=== PATIENT | male | born 1955 | race Caucasian/White ===

== ENCOUNTER 2020-09-30 10:22 | Inpatient (IN) ==
[2020-09-30 11:18] LABS: Basophils % 0.3 %; Eosinophils # 0.3 K/mcL (0.0-0.6); Eosinophils % 3.2 %; Hematocrit 48.4 % (37.5-50.1); Hemoglobin 14.9 g/dL (12.9-16.9); Immature Granulocytes % 0.1 % (0-4); Lymphocytes # 1.9 K/mcL (0.6-4.6); Lymphocytes % 23.9 %; Mean Corpuscular HGB Conc 30.8 g/dL (31.6-35.5); Mean Corpuscular Hemoglobin 28.5 pg (28.0-33.3); Mean Corpuscular Volume 92.7 fL (83.0-100.0); Monocytes # 0.6 K/mcL (0.0-1.3); Monocytes % 6.9 %; Neutrophils # 5.2 K/mcL (1.6-8.9); Platelet Count 254 K/mcL (140-400); Red Blood Count 5.22 M/mcL (4.19-5.50); Red Cell Distribution Width 13.6 % (11.5-14.5); Segmented Neutrophils % 65.6 %; White Blood Count 7.9 K/mcL (4.3-11.1)
[2020-09-30] MEDS ORDERED: Furosemide 40 MG/4 ML VIAL IVP ONE (11:19)
[2020-09-30 11:22] LABS: BUN/Creatinine Ratio 15 (6-26); Blood Urea Nitrogen 15 mg/dL (8-23); Calcium 9.5 mg/dL (8.6-10.3); Carbon Dioxide 28 mEq/L (23-29); Chloride 101 mEq/L (98-107); Glucose 134 mg/dL (70-105); Osmolality,Calculated 291 (280-300); Potassium 3.8 mEq/L (3.5-5.1); Sodium 139 mEq/L (136-145); Troponin I 0.05 ng/mL (< 0.04); eGFR For African Americans > 60 (> 60); eGFR For Non-African Americans > 60 (> 60)
[2020-09-30] MEDS ORDERED: Aspirin 81 MG TAB.CHEW PO ONE (11:28)
[2020-09-30] MEDS ORDERED: Naloxone 0.4 MG/ML INJ IVP PRN (12:37)
[2020-09-30] MEDS ORDERED: Perflutren Lipid Microsphere 1.3 ML in 0.9 % Sodium Chloride 8.7 ML IVP PRN (12:42)
[2020-09-30] MEDS ORDERED: Dextrose Gel 15 GM/37.5 ML TUBE PO PRN ×2 (12:43)
[2020-09-30] MEDS ORDERED: *HR* Dextrose 50 % in Water (Vial) 50 ML VIAL IVP PRN (12:43)
[2020-09-30] MEDS ORDERED: D5% in Water 1,000 ML IVC PRN (12:43)
[2020-09-30] MEDS ORDERED: lisinopriL 5 MG TABLET PO SCH (16:15)
[2020-09-30] MEDS: Insulin LISPRO 300 UNITS/3 ML VIAL SUBQ SCH ×2 (19:15→20:45)
[2020-09-30] MEDS: *HR* Heparin 5,000 UNIT/ML VIAL SQ SCH (20:45)
[2020-10-01] MEDS: rOPINIRole 1 MG TABLET PO SCH ×2 (01:18→19:32)
[2020-10-01] MEDS: *HR* Heparin 5,000 UNIT/ML VIAL SQ SCH ×3 (05:21→21:06)
[2020-10-01 05:52] LABS: Basophils % 0.7 %; Eosinophils # 0.2 K/mcL (0.0-0.6); Eosinophils % 3.8 %; Hematocrit 42.3 % (37.5-50.1); Immature Granulocytes % 0.2 % (0-4); Lymphocytes # 1.6 K/mcL (0.6-4.6); Lymphocytes % 26.7 %; Mean Corpuscular Hemoglobin 28.4 pg (28.0-33.3); Mean Corpuscular Volume 91.8 fL (83.0-100.0); Mean Platelet Volume 9.9 fL (9.4-12.4); Monocytes # 0.5 K/mcL (0.0-1.3); Monocytes % 8.8 %; Neutrophils # 3.6 K/mcL (1.6-8.9); Platelet Count 203 K/mcL (140-400); Red Blood Count 4.61 M/mcL (4.19-5.50); Red Cell Distribution Width 13.5 % (11.5-14.5); Segmented Neutrophils % 59.8 %
[2020-10-01 05:53] LABS: Hemoglobin 13.1 g/dL (12.9-16.9)
[2020-10-01 06:22] LABS: BUN/Creatinine Ratio 17 (6-26); Blood Urea Nitrogen 16 mg/dL (8-23); Calcium 8.8 mg/dL (8.6-10.3); Carbon Dioxide 29 mEq/L (23-29); Chloride 104 mEq/L (98-107); Glucose 102 mg/dL (70-105); Osmolality,Calculated 291 (280-300); Potassium 3.2 mEq/L (3.5-5.1); Sodium 140 mEq/L (136-145); eGFR For African Americans > 60 (> 60); eGFR For Non-African Americans > 60 (> 60)
[2020-10-01] MEDS: Insulin LISPRO 300 UNITS/3 ML VIAL SUBQ SCH ×4 (08:23→20:19)
[2020-10-01] MEDS: Aspirin 81 MG TAB.CHEW PO SCH (08:30)
[2020-10-01 08:31] LABS: Estimated Average Glucose 180 mg/dl; Hemoglobin A1C 7.9 %
[2020-10-01] MEDS ORDERED: lisinopriL 10 MG TABLET PO SCH (09:00)
[2020-10-01] MEDS ORDERED: Furosemide 40 MG/4 ML VIAL IVP SCH (09:00)
[2020-10-01 09:03] LABS: Chol/HDL Ratio 4.1 (0-4.9); Troponin I 0.06 ng/mL (< 0.04)
[2020-10-01] MEDS: Spironolactone 12.5 MG TABLET PO SCH (10:35)
[2020-10-01 10:42] LABS: Estimated Average Glucose 180 mg/dl; Hemoglobin A1C 7.9 %
[2020-10-01] MEDS ORDERED: lisinopriL 10 MG TABLET PO ONE (14:50)
[2020-10-01] MEDS: Furosemide 40 MG/4 ML VIAL IVP SCH (18:06)
[2020-10-02 01:20] LABS: BUN/Creatinine Ratio 17 (6-26); Blood Urea Nitrogen 15 mg/dL (8-23); Calcium 8.9 mg/dL (8.6-10.3); Chloride 100 mEq/L (98-107); Glucose 86 mg/dL (70-105); Magnesium 1.6 mg/dL (1.6-2.6); Osmolality,Calculated 292 (280-300); Phosphorous 2.6 mg/dL (2.7-4.5); Potassium 3.2 mEq/L (3.5-5.1); Sodium 141 mEq/L (136-145); eGFR For African Americans > 60 (> 60); eGFR For Non-African Americans > 60 (> 60)
[2020-10-02 02:09] LABS: Carbon Dioxide 29 mEq/L (23-29)
[2020-10-02] MEDS: *HR* Heparin 5,000 UNIT/ML VIAL SQ SCH ×3 (04:58→21:42)
[2020-10-02] MEDS: Insulin LISPRO 300 UNITS/3 ML VIAL SUBQ SCH ×4 (08:27→21:42)
[2020-10-02] MEDS: Spironolactone 12.5 MG TABLET PO SCH (08:30)
[2020-10-02] MEDS: Aspirin 81 MG TAB.CHEW PO SCH (08:31)
[2020-10-02] MEDS: Furosemide 40 MG/4 ML VIAL IVP SCH ×2 (08:31→21:42)
[2020-10-02] MEDS ORDERED: Isovue-370 500 ML BOTTLE PO ONE (15:12)
[2020-10-02] MEDS: carvediloL 6.25 MG TABLET PO SCH (15:46)
[2020-10-02] MEDS: Psyllium 1 PACKET POWD.PACK PO SCH (21:36)
[2020-10-02] MEDS: rOPINIRole 1 MG TABLET PO SCH (21:39)
[2020-10-02] MEDS: Simethicone 80 MG TAB.CHEW PO PRN (23:38)
[2020-10-03] MEDS: *HR* Heparin 5,000 UNIT/ML VIAL SQ SCH ×4 (05:19→20:42)
[2020-10-03 06:34] LABS: Hematocrit 43.7 % (37.5-50.1); Hemoglobin 13.4 g/dL (12.9-16.9); Mean Corpuscular HGB Conc 30.7 g/dL (31.6-35.5); Mean Corpuscular Hemoglobin 28.2 pg (28.0-33.3); Mean Corpuscular Volume 91.8 fL (83.0-100.0); Mean Platelet Volume 10.2 fL (9.4-12.4); Platelet Count 219 K/mcL (140-400); Red Blood Count 4.76 M/mcL (4.19-5.50); Red Cell Distribution Width 13.7 % (11.5-14.5); White Blood Count 6.9 K/mcL (4.3-11.1)
[2020-10-03 06:58] LABS: BUN/Creatinine Ratio 20 (6-26); Blood Urea Nitrogen 19 mg/dL (8-23); Calcium 9.2 mg/dL (8.6-10.3); Carbon Dioxide 31 mEq/L (23-29); Chloride 100 mEq/L (98-107); Glucose 119 mg/dL (70-105); Osmolality,Calculated 293 (280-300); Potassium 3.2 mEq/L (3.5-5.1); Sodium 140 mEq/L (136-145); eGFR For African Americans > 60 (> 60); eGFR For Non-African Americans > 60 (> 60)
[2020-10-03] MEDS: Insulin LISPRO 300 UNITS/3 ML VIAL SUBQ SCH ×4 (09:01→20:41)
[2020-10-03] MEDS: carvediloL 6.25 MG TABLET PO SCH ×2 (09:12→16:32)
[2020-10-03] MEDS: Spironolactone 12.5 MG TABLET PO SCH (09:13)
[2020-10-03] MEDS: Aspirin 81 MG TAB.CHEW PO SCH (09:13)
[2020-10-03] MEDS: Furosemide 40 MG/4 ML VIAL IVP SCH ×2 (09:24→16:32)
[2020-10-03] MEDS: Psyllium 1 PACKET POWD.PACK PO SCH ×3 (12:42→19:48)
[2020-10-03] MEDS: Simethicone 80 MG TAB.CHEW PO PRN (18:06)
[2020-10-03] MEDS: rOPINIRole 1 MG TABLET PO SCH (19:47)
[2020-10-04] MEDS: Simethicone 80 MG TAB.CHEW PO PRN ×3 (03:08→17:04)
[2020-10-04 04:07] LABS: Basophils % 0.3 %; Eosinophils # 0.3 K/mcL (0.0-0.6); Eosinophils % 4.6 %; Hematocrit 43.4 % (37.5-50.1); Hemoglobin 13.5 g/dL (12.9-16.9); Immature Granulocytes % 0.3 % (0-4); Lymphocytes % 15.8 %; Mean Corpuscular HGB Conc 31.1 g/dL (31.6-35.5); Mean Corpuscular Hemoglobin 29.2 pg (28.0-33.3); Mean Corpuscular Volume 93.9 fL (83.0-100.0); Mean Platelet Volume 10.2 fL (9.4-12.4); Monocytes # 0.5 K/mcL (0.0-1.3); Monocytes % 8.1 %; Neutrophils # 4.5 K/mcL (1.6-8.9); Platelet Count 213 K/mcL (140-400); Red Blood Count 4.62 M/mcL (4.19-5.50); Red Cell Distribution Width 13.9 % (11.5-14.5); Segmented Neutrophils % 70.9 %; White Blood Count 6.3 K/mcL (4.3-11.1)
[2020-10-04 04:29] LABS: Alanine Aminotransferase 9 Units/L (7-52); Albumin 3.9 g/dL (3.5-5.7); Albumin/Globulin Ratio 1.3 (1.1-2.2); Alkaline Phosphatase 54 Units/L (34-104); Aspartate Amino Transferase 15 Units/L (13-39); BUN/Creatinine Ratio 18 (6-26); Bilirubin,Direct 0.5 mg/dL (0.0-0.2); Bilirubin,Indirect 1.9 mg/dL (0.0-1.0); Bilirubin,Total 2.4 mg/dL (0.3-1.0); Blood Urea Nitrogen 21 mg/dL (8-23); Calcium 9.3 mg/dL (8.6-10.3); Carbon Dioxide 31 mEq/L (23-29); Chloride 102 mEq/L (98-107); Globulin 2.9 g/dL (2.4-3.5); Glucose 124 mg/dL (70-105); Magnesium 1.9 mg/dL (1.6-2.6); Osmolality,Calculated 296 (280-300); Potassium 3.3 mEq/L (3.5-5.1); Sodium 141 mEq/L (136-145); Total Protein 6.8 g/dL (6.4-8.9); eGFR For African Americans > 60 (> 60); eGFR For Non-African Americans > 60 (> 60)
[2020-10-04] MEDS: Insulin LISPRO 300 UNITS/3 ML VIAL SUBQ SCH ×4 (08:13→20:57)
[2020-10-04] MEDS: Aspirin 81 MG TAB.CHEW PO SCH (09:37)
[2020-10-04] MEDS: carvediloL 6.25 MG TABLET PO SCH ×2 (09:38→17:04)
[2020-10-04] MEDS: Psyllium 1 PACKET POWD.PACK PO SCH ×3 (09:38→20:58)
[2020-10-04] MEDS: Furosemide 40 MG/4 ML VIAL IVP SCH ×2 (09:38→17:04)
[2020-10-04] MEDS: *HR* Heparin 5,000 UNIT/ML VIAL SQ SCH ×2 (15:26→20:58)
[2020-10-04] MEDS: rOPINIRole 1 MG TABLET PO SCH (20:58)
[2020-10-05] MEDS: *HR* Heparin 5,000 UNIT/ML VIAL SQ SCH ×2 (00:42→14:02)
[2020-10-05 01:37] LABS: Alanine Aminotransferase 9 Units/L (7-52); Albumin 3.8 g/dL (3.5-5.7); Albumin/Globulin Ratio 1.5 (1.1-2.2); Alkaline Phosphatase 50 Units/L (34-104); Aspartate Amino Transferase 13 Units/L (13-39); BUN/Creatinine Ratio 18 (6-26); Bilirubin,Direct 0.4 mg/dL (0.0-0.2); Bilirubin,Indirect 1.3 mg/dL (0.0-1.0); Bilirubin,Total 1.7 mg/dL (0.3-1.0); Blood Urea Nitrogen 21 mg/dL (8-23); Carbon Dioxide 30 mEq/L (23-29); Chloride 102 mEq/L (98-107); Globulin 2.5 g/dL (2.4-3.5); Glucose 123 mg/dL (70-105); Osmolality,Calculated 294 (280-300); Potassium 3.5 mEq/L (3.5-5.1); Sodium 140 mEq/L (136-145); Total Protein 6.3 g/dL (6.4-8.9); eGFR For African Americans > 60 (> 60); eGFR For Non-African Americans > 60 (> 60)
[2020-10-05] MEDS: Insulin LISPRO 300 UNITS/3 ML VIAL SUBQ SCH ×2 (08:41→12:44)
[2020-10-05] MEDS: Aspirin 81 MG TAB.CHEW PO SCH ×2 (08:42→10:15)
[2020-10-05] MEDS: carvediloL 6.25 MG TABLET PO SCH ×2 (08:42→10:15)
[2020-10-05] MEDS: Psyllium 1 PACKET POWD.PACK PO SCH (08:42)
[2020-10-05] MEDS: Furosemide 40 MG/4 ML VIAL IVP SCH (10:14)
[2020-10-05 12:04] VITALS: BP 149/87
== END 2020-10-05 15:58 | disposition left against medical advice (07) | DRG 280 ==
LOC: 3BNU 10:22 → EMEROOARM 10:22 → SUATTDRO 12:47 → 3BNU 13:55 → SUATTDRO 10-02 14:50
PROVIDERS: ADMIT Internal Medicine; ATTEND Internal Medicine